=== PATIENT | male | born 1970 | race Caucasian/White ===

== ENCOUNTER 2020-01-30 18:02 | Emergency (ER) | payer BC, OTHER ==
[~2020-01-30] VITALS: Ht 175.3 cm; Wt 104.3 kg
[2020-01-30] MEDS ORDERED: ONDANSETRON ODT 4 MG TAB.RAPDIS SL ONE (18:45)
[2020-01-30] MEDS ORDERED: HYDROCODONE/APAP 10-325 MG TABLET PO ONE (18:45)
[2020-01-30] MEDS ORDERED: ONDANSETRON ODT 4 MG TAB.RAPDIS ONE (18:45)
--- NOTE | 2020-01-30 18:45 | NUR ---
I assisted patient with putting back his shirt on, pending x-rays.
[2020-01-30] MEDS ORDERED: HYDROCODONE/APAP 10-325 MG TABLET ONE (18:46)
--- NOTE | 2020-01-30 19:16 | NUR ---
Patient discharged to home in stable condition. Written and verbal after care instructions given. Patient verbalizes understanding of instructions. Stressed follow up or return to ER for worsening s/s. aa/ox4 ambulatory with steady gait all belongings with pt no s/s of distress
[2020-01-30 19:17] VITALS: BP 142/90
== END 2020-01-30 19:19 | disposition home or self-care (01) ==
LOC: ER 18:04
DX: S43.101A Unspecified dislocation of right acromioclavicular joint, initial encounter (principal); S20.211A Contusion of right front wall of thorax, initial encounter; V19.9XXA Pedal cyclist (driver) (passenger) injured in unspecified traffic accident, initial encounter; Y93.55 Activity, bike riding; Y92.89 Other specified places as the place of occurrence of the external cause; R03.0 Elevated blood-pressure reading, without diagnosis of hypertension
CPT/HCPCS: 71045; 73000; A4663; Q0162